=== PATIENT | female | born 1955 | race Caucasian/White ===

== ENCOUNTER → 2024-01-12 13:14 | Outpatient (REF) | payer MEDICARE, OTHER, SELFPAY | LOC: HWWDC 13:14 | PROVIDERS: ATTENDING PHYSICIAN Obstetrics & Gynecology; FAMILY PHYSICIAN Internal Medicine | DX: Z12.31 Encounter for screening mammogram for malignant neoplasm of breast (principal); Z78.0 Asymptomatic menopausal state | CPT/HCPCS: 77063; 77067 ==

== ENCOUNTER → 2024-01-28 09:06 | Outpatient (REF) | payer MEDICARE, OTHER, SELFPAY | LOC: HWRAD 09:06 | PROVIDERS: ATTENDING PHYSICIAN Internal Medicine | DX: Z78.0 Asymptomatic menopausal state (principal) | CPT/HCPCS: 77080 ==

== ENCOUNTER 2024-05-10 11:10 | Emergency (ER) | payer MEDICARE, OTHER, SELFPAY ==
[2024-05-10 11:15] VITALS: BP 126/80
--- NOTE | 2024-05-10 11:23 | ED.GENMED ---
ED Provider Triage
<Beau Merlos Jr., PA-C - Last Filed: 05/10/24 11:24>
-
Patient seen by provider in Triage?: Seen in Triage
Attestation: A medical screening examination has been initiated by a qualified medical provider. Based on the assessment performed at this time, it has been determined that an emergent medical condition may exist and the patient has been informed
that further medical evaluation and possible additional diagnostic testing may be needed.
HPI: 68-year-old female presenting with concerns of intermittent room spinning dizziness over the past 2 weeks or so worsening today with vestibular rehab the therapist noticed that she had a left-sided facial droop and sent her to the ER for
assessment. 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 Here she does appear to have slight decreased strength to the left eyebrow which is reassuring for potential facial nerve palsy rather than central process however due to additional
neurologic plan for CT scan and additional assessment pending primary evaluation.
GENERAL: Alert , in no apparent distress
EYE: No visual abnormalities.
NECK: Trachea midline
ENT: No visible abnormalities.
LUNGS: No acute respiratory distress
NEUROLOGICAL: Left-sided facial droop with puffing of the cheeks as well as smiling. Left eyebrow with slight decreased compared to the right, otherwise 5 out of 5 upper and lower extremity strength normal sensation with palpating bilaterally.
Alert and oriented
SKIN: Skin intact. No visible changes.
MUSCULOSKELETAL: Moving extremities normally
PSYCH: Normal and appropriate interaction.
This is a medical evaluation conducted in person to initiate diagnostic evaluation and provide initial therapeutics. Please see further documentation by the treating clinician.
History of Present Illness
<Beau Merlos Jr., PA-C - Last Filed: 05/10/24 11:24>
General
Chief Complaint: Dizziness
Time Seen by Provider: 05/10/24 12:36
<Marlin Cox PA-C - Last Filed: 05/10/24 15:35>
General
Source: patient
Exam Limitations: none
Nursing documentation reviewed up to this point in time: agreed with
History of Present Illness
History of Present Illness:
pt is a 68 y/o F
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
h/o vertigo, 3 episodes in the past few years
most recent was 04/26 suddenly during enight
sje was mroe significant with symptoms intially with n/v
thoe symptoms improved and she started vestibular therpay which she has used previously
She said this was her third treatment today. After today's treatment which she did a modified [place] and some other maneuvers the patient seemed to have more left-sided facial twitching and feel a bit more dizzy than her 'usual.' This was witnessed
by the occupational therapist who is doing the therapies. She asked patient's to come in and look at her and he thought she looked stable per usual but then maybe was questioning slight worsening in symptoms, more twitching than her
baseline but was very subtle. Patient since feels back to her baseline and her agrees. She never had any headache, neck pain, vision loss, numbness tingling or weakness in her arms or legs, patient is able to ambulate on her own. She was
here because the therapist was worried
Past History
<Beau Merlos Jr., PA-C - Last Filed: 05/10/24 11:24>
Past History
ED Past Medical History: None
ED Past Surgical History: None
Social History
Tobacco: Non-smoker
Personal:
Living: with family
<Marlin Cox PA-C - Last Filed: 05/10/24 15:35>
Past History
ED Past Medical History: Other (bells palsy, vertigo)
Review of Systems
<Marlin Cox PA-C - Last Filed: 05/10/24 15:35>
Review of Systems
Allergies reviewed?: Yes
All Other Systems: Not applicable
Phy Exam
<Marlin Cox PA-C - Last Filed: 05/10/24 15:35>
Physical Exam
Physical Exam:
GENERAL: Alert , in no apparent distress
HEAD: NCAT
EYE: pupils equal and reactive, no nystagmus, no photophobia
NECK: Supple,full rom, nontender
ENT: o/p clr, mmm.
CARDIAC: Regular rate and rhythm . no edema
LUNGS: Clear breath sounds bilaterally, no acute respiratory distress, no wheezes/rales/rhonchi
ABDOMEN: Soft, without focal tenderness, no r/g, no cvat
NEUROLOGICAL: Alert and orientedx 4, patient has a very subtle left mouth twitching, the corner of her left mouth, with very slight droopiness.
She can elevate her blood to spinal
Her left eye muscles may be slightly weaker but she is able to fully close her eyes
EOMs intact, slight nystagmus on lateral gaze otherwise cranial nerves intact, 5/5 strength in UE/LE, sensation intact, romberg neg, ambulates without assistance, neg pronator drift
SKIN: Warm and dry, skin intact.
MUSCULOSKELETAL: No edema, well perfused.
PSYCH: Normal and appropriate interaction.
Course
<Beau Merlos Jr., PA-C - Last Filed: 05/10/24 11:24>
Orders/Labs/Results
Orders:
Orders
05/10/24 11:21
EKG [Electrocardiogram (*1)] Urgent
Reason for Study: Vertigo / Dizzy
CT Head W/o Iv Contrast Urgent
Comment:
Reason For Exam: left facial wakness vertigo
EKG- Treatment ONCE
05/10/24 11:28
CBC/With Diff [Complete Blood Count/With Diff] Urgent
CMP [Comprehensive Metabolic Panel] Urgent
Abnormal Lab Results
05/10/24
11:28
MCH 32.9 H pg
(27.0-31.0)
RDW 11.2 L %
(11.5-14.5)
05/10/24 11:28
05/10/24 11:28
Vital Signs
Initial and Last Documented VS:
Initial Vital Signs
Temp Pulse Resp BP Pulse Ox
36.4 C 66 18 126/80 98
05/10/24 11:15 05/10/24 11:15 05/10/24 11:15 05/10/24 11:15 05/10/24 11:15
Last Documented Vital Signs
Temp Pulse Resp BP Pulse Ox
36.6 C 55 20 121/77 97
05/10/24 13:35 05/10/24 13:35 05/10/24 13:35 05/10/24 13:35 05/10/24 13:35
<Marlin Cox PA-C - Last Filed: 05/10/24 15:35>
Orders/Labs/Results
Orders:
Orders
05/10/24 11:21
EKG [Electrocardiogram (*1)] Urgent
Reason for Study: Vertigo / Dizzy
CT Head W/o Iv Contrast Urgent
Comment:
Reason For Exam: left facial wakness vertigo
EKG- Treatment ONCE
05/10/24 11:28
CBC/With Diff [Complete Blood Count/With Diff] Urgent
CMP [Comprehensive Metabolic Panel] Urgent
Abnormal Lab Results
05/10/24
11:28
MCH 32.9 H pg
(27.0-31.0)
RDW 11.2 L %
(11.5-14.5)
05/10/24 11:28
05/10/24 11:28
Vital Signs
Initial and Last Documented VS:
Initial Vital Signs
Temp Pulse Resp BP Pulse Ox
36.4 C 66 18 126/80 98
05/10/24 11:15 05/10/24 11:15 05/10/24 11:15 05/10/24 11:15 05/10/24 11:15
Last Documented Vital Signs
Temp Pulse Resp BP Pulse Ox
36.6 C 55 20 121/77 97
05/10/24 13:35 05/10/24 13:35 05/10/24 13:35 05/10/24 13:35 05/10/24 13:35
ED Attending Note
<Beau Merlos Jr., LATOYA-Melly - Last Filed: 05/10/24 11:24>
-
Portions of this chart may have been created with voice recognition software.� Occasional wrong word or��sound alike� substitutions may have occurred due to the inherent limitations of voice recognition software.
Discharge Plan
Departure
Patient Disposition: Home (Routine Discharge)
Date of Disposition: 05/10/24
Time of Disposition: 13:23
Patient with high blood pressure during this ER visit?: No
Condition: Fair
Covid-19: Not Applicable
Discharge Problem:
Vertigo
Instructions: Vertigo (a Type of Dizziness) (DC)
Prescriptions:
No Action
ondansetron HCl [Zofran] 8 MG tablet
8 mg PO TIDPRN PRN (Reason: nausea) Qty: 30 0RF
methylprednisolone [Medrol (Matthew)] 4 MG/DOSE-PACK tablets,dose pack
4 mg PO DAILY Qty: 21 0RF
Rx Instructions:
Take 6 tablets on Day 1, 5 tablets on Day 2, 4 tablets on Day 3,
3 tablets on Day 4, 2 tablets on Day 5, 1 tablet on Day 6.
hydromorphone 4 MG tablet
4 mg PO Q4HPRN PRN (Reason: pain) Qty: 30 0RF
Referrals:
Savana Tilley MD [Family Provider] -
Activity Restrictions/Additional Instructions:
Your symptoms seem to be stabilized and chronic. Your workup here was otherwise unremarkable. Your CAT scan was unremarkable.
Try the meclizine if you feel symptomatic. Do not hesitate to return for worsening symptoms especially being unable to walk, or any new accompanied neurologic symptoms. Follow-up with your doctor. Return as needed
Interventions
Interventions:
*Risk Screen - Suicide Last Done: 05/10/24 13:24
*General Assessment Last Done: 05/10/24 13:24
*Neglect/Abuse Screening Last Done: 05/10/24 13:26
*ED COVID-19 Vaccine History Last Done: 05/10/24 13:24
*Nursing Disposition Last Done: 05/10/24 13:35
ED- Neurological Assessment Last Done: 05/10/24 13:28
Discharge Date and Time
Discharge Date/Time: 05/10/24 13:53
Print Language: AMHARIC
[2024-05-10 11:37] LABS: % Basophils 0.3 % (0-2); % Eosinophils 1.9 % (0-6); % Immature Granulocytes 0.5 % (0-0.5); % Lymphocytes 34.1 % (20.5-51.1); % Monocytes 9.2 % (1.7-9.3); Absolute Eosinophils 0.1 10^3/uL (0-0.7); Absolute Lymphocytes 2.1 10^3/uL (1.2-3.4); Absolute Monocytes 0.6 10^3/uL (0.1-0.6); Absolute Neutrophils 3.4 10^3/uL (1.4-6.5); Hematocrit 42.2 % (37.0-47.0); Hemoglobin 14.3 g/dL (12.0-16.0); Mean Corp Hgb Conc. 33.9 g/dL (33.0-37.0); Mean Corpuscular Hgb 32.9 pg (27.0-31.0); Nucleated Red Blood Cells % 0 %; Platelet Count 276 10^3/uL (130-400); Red Blood Cell Count 4.35 10^6/uL (4.20-5.40); Red Cell Dist. Width 11.2 % (11.5-14.5); White Blood Cell Count 6.2 10^3/uL (4.8-10.8)
[2024-05-10 11:52] LABS: ALT (SGPT) 13 U/L (0-35); AST (SGOT) 21 U/L (14-36); Albumin 4.6 g/dl (3.5-5.0); Alkaline Phosphatase 58 U/L (38-126); Blood Urea Nitrogen 10 mg/dl (7-17); Calcium 9.3 mg/dl (8.4-10.2); Carbon Dioxide 27 mmol/L (22-30); Chloride 102 mmol/L (98-107); Glucose 89 mg/dl (70-99); Potassium 4.2 mmol/L (3.5-5.1); Sodium 138 mmol/L (135-145); Total Bilirubin 0.5 mg/dl (0.2-1.3); Total Protein 7.6 g/dl (6.3-8.2); eGFR > 60.00
[2024-05-10 13:25] VITALS: BP 121/77
[2024-05-10 13:35] VITALS: BP 121/77
== END 2024-05-10 13:53 | disposition home or self-care (01) ==
LOC: EMR 11:10
PROVIDERS: Physician Assistant; EMERGENCY PHYSICIAN Emergency Medicine; FAMILY PHYSICIAN Internal Medicine
DX: R42 Dizziness and giddiness (principal); R29.810 Facial weakness
CPT/HCPCS: 99284; 70450; 80053; 85025; 93005

== ENCOUNTER → 2024-08-05 11:55 | Outpatient (REF) | payer MEDICARE, OTHER, SELFPAY | LOC: HWRAD 11:55 | DX: J18.9 Pneumonia, unspecified organism (principal) | CPT/HCPCS: 71046 ==